=== PATIENT | male | born 1960 | race African-American/Black ===

== ENCOUNTER 2025-02-04 11:14 | Emergency (ER) | payer MEDICAID ==
[~2025-02-04] VITALS: Ht 170.2 cm; Wt 82.0 kg
[~2025-02-04 11:14] MED LIST: AMLO10TA80 PO; DICL100G58 TP
[2025-02-04 11:16] VITALS: O2SAT 99
[2025-02-04 12:12] LABS: BASOPHILS % 1.3 % (0.0-2.0); EOSINOPHILS % 3.1 % (0.0-5.0); HEMATOCRIT. 38.0 % (42.0-52.0); HEMOGLOBIN. 12.2 g/dL (14.0-18.0); LYMPHOCYTES % 41.2 % (20.0-50.0); MEAN PLATELET VOLUME 7.4 fl (7.4-10.4); MONOCYTES % 9.0 % (2.0-8.0); NEUTROPHILS % 45.4 % (40.0-76.0); PLATELET 442 x1000/uL (130-400); RED BLOOD CELL COUNT 4.74 mill/uL (4.7-6.1); RED CELL DISTRIBUTION WIDTH 21.9 % (11.6-14.6)
[2025-02-04 12:39] LABS: CREATININE 1.0 mg/dL (0.6-1.3); UREA NITROGEN BLOOD 7 mg/dL (9-23)
[2025-02-04 12:41] LABS: ASPARTATE AMINOTRANSFERASE 44 IU/L (<34); BILIRUBIN DIRECT < 0.1 mg/dL (<=3.0); BILIRUBIN TOTAL 0.3 mg/dL (0.1-1.0); PROTEIN TOTAL 7.7 g/dL (6.0-8.3)
[2025-02-04] MEDS: FAMOTIDINE 20MG TABLET PO ONE (13:05)
[2025-02-04] MEDS: ACETAMINOPHEN 500MG TABLET PO ONE (13:05)
[2025-02-04] MEDS ORDERED: IOHEXOL-300 100 ML BOTTLE ONE (14:27)
[2025-02-04 15:38] LABS: CLARITY URINE CLEAR (CLEAR); COLOR URINE YELLOW (YELLOW); GLUCOSE URINE NEGATIVE (NEGATIVE); KETONES URINE NEGATIVE (NEGATIVE); LEUKOCYTE ESTERASE URINE NEGATIVE (NEGATIVE); NITRITE URINE NEGATIVE (NEGATIVE); OCCULT BLOOD URINE NEGATIVE (NEGATIVE); PH URINE 5.5 (4.5-8.0); PROTEIN URINE 1+ (NEGATIVE); SPECIFIC GRAVITY URINE 1.031 (1.005-1.030); UROBILINOGEN URINE 1.0 E.U./dL (0.2-1.0)
[2025-02-04 15:45] LABS: *AMPHETAMINES SCREEN URINE NEGATIVE (NEGATIVE); *BARBITURATES SCREEN URINE NEGATIVE (NEGATIVE); *BENZODIAZEPINES SCREEN URINE NEGATIVE (NEGATIVE); *COCAINE SCREEN URINE NEGATIVE (NEGATIVE); CANNABINOID URINE SCREEN PRESUMPTIVE POSITIVE (NEGATIVE); METHADONE URINE SCREEN NEGATIVE (NEGATIVE); OPIATES URINE SCREEN NEGATIVE (NEGATIVE); PHENCYCLIDINE URINE SCREEN NEGATIVE (NEGATIVE)
[2025-02-04 15:46] LABS: ECSTASY MDMA SCREEN URINE NEGATIVE (NEGATIVE)
[2025-02-04 16:10] LABS: BACTERIA URINE TRACE; RBC URINE NONE SEEN /hpf (0-2); SQUAMOUS EPITHELIAL CELL URINE FEW /lpf (RARE/1+); WBC URINE 0-2 /hpf (0-2)
[2025-02-04] MEDS ORDERED: ACET-2708 MT (16:35)
[2025-02-04] MEDS ORDERED: FAMO-135 MT (16:35)
[2025-02-04 16:40] VITALS: BP 151/83; PULSE 85; RESP 18; TEMP 37.2; O2SAT 99
== END 2025-02-04 17:07 | disposition home or self-care (01) ==
LOC: ER 11:14
DX: R10.84 Generalized abdominal pain (principal); I10 Essential (primary) hypertension; Z79.899 Other long term (current) drug therapy
CPT/HCPCS: 80076; 80305; 80048; 81003; 80320; 83690; 85025; 36415; 74177; 93005; 99285; Q9967; G0480